=== PATIENT | male | born 1965 | race African-American/Black ===

== ENCOUNTER 2016-11-20 08:11 | Day surgery (SDC) | payer OTHER ==
[~2016-11-20] VITALS: Ht 200.7 cm; Wt 86.3 kg
[2016-11-20 09:22] VITALS: Ht 200.7 cm; Wt 86.3 kg
[2016-11-20] MEDS ORDERED: TRAM-40 PO (09:35)
[2016-11-20] MEDS ORDERED: LIDOCAINE 2% (SDV) 5 ML INJ ONE (09:40)
[2016-11-20] MEDS ORDERED: MIDAZOLAM 1 MG/ML 2 ML INJ ONE (09:40)
[2016-11-20] MEDS ORDERED: PROPOFOL 20 ML ONE (09:40)
[2016-11-20 09:48] VITALS: BP 140/73; PULSE 50; RESP 11
[2016-11-20 10:45] VITALS: BP 149/84; PULSE 60; RESP 19
--- NOTE | 2016-11-20 14:12 | GILP ---
DATE OF PROCEDURE: 11/20/2016 PROCEDURE: Colonoscopy. PREOPERATIVE DIAGNOSIS: Screening colonoscopy to rule out colon polyps. POSTOPERATIVE DIAGNOSES: A 5 mm submucosal polyp noted just in the rectum. This was biopsied. Res t of the colon appeared normal. DESCRIPTION OF PROCEDURE: After the informed written consent was obtained, the patient was asked to lie on the left lateral side. Intravenous anesthesia was given by anesthesiologist, Dr. Martinez. Whe n the patient became somnolent, the Olympus video colonoscope was introduced into the rectum and sco pe was advanced all the way to the cecum. Ileocecal valve was identified. No abnormalities detecte d. On the way, a 4 to 5 mm submucosal polyp noted in the rectum just about 3 cm above the anus, and after the biopsies, procedure was terminated. No hemorrhoids noted. PLAN: Recommend wait for the pathology report. Dictated By: MADELIN SANTOS/JODEE Conf#: [id number] DID#: [id number] CC: [facility];*EndCC*
== END 2016-11-20 11:42 | disposition home or self-care (01) ==
LOC: SDS 08:11 → GIL 08:13 → SDS 11:42
PROVIDERS: ATTEND Internal Medicine Gastroenterology
DX: Z12.11 Encounter for screening for malignant neoplasm of colon (principal); D3A.026 Benign carcinoid tumor of the rectum
CPT/HCPCS: 45380; 88305; J2250; Z7610